=== PATIENT | female | born 1990 | race Two or more races ===

== ENCOUNTER 2018-03-04 00:16 | Emergency (ER) | payer OTHER ==
[~2018-03-04] VITALS: Ht 170.2 cm; Wt 90.7 kg
[2018-03-04] MEDS ORDERED: NORFLEX100MG PO (02:25)
[2018-03-04] MEDS ORDERED: GABAPENTIN400 MG PO (02:25)
== END 2018-03-04 02:30 | disposition home or self-care (01) ==
LOC: ER 00:16
DX: S39.012A Strain of muscle, fascia and tendon of lower back, initial encounter (principal); X50.3XXA Overexertion from repetitive movements, initial encounter; Y93.89 Activity, other specified; Y92.89 Other specified places as the place of occurrence of the external cause; Y99.8 Other external cause status